=== PATIENT | female | born 1975 | race Hispanic/Latino ===

== ENCOUNTER 2018-11-18 03:12 | Emergency (ER) | payer OTHER | END 2018-11-18 03:44 | disposition home or self-care (01) | LOC: EDH 03:12 | DX: Z02.83 Encounter for blood-alcohol and blood-drug test (principal) ==

== ENCOUNTER → 2024-07-05 | Outpatient (CLI) | payer OTHER ==
[2024-07-05 21:44] VITALS: PULSE 72; RESP 22
[2024-07-05 22:44] VITALS: PULSE 70; RESP 22
[2024-07-05 23:30] VITALS: PULSE 68; RESP 24
[2024-07-06] VITALS (11 sets, daily range): PULSE 54–66; RESP 18–22
--- NOTE | 2024-07-06 03:09 | NUR ---
PROPRANOLOL HCL 100MG,METFORMIN 1000MG,CHOLECALCIF 25MCG Addendum: 07/06/24 at 0317 by MURRAY JONES Amended: Links added.
== END | disposition home or self-care (01) ==
LOC: SLP 20:29
PROVIDERS: ATTEND Internal Medicine Pulmonary Disease
DX: G47.33 Obstructive sleep apnea (adult) (pediatric) (principal); G47.10 Hypersomnia, unspecified
CPT/HCPCS: 95810